=== PATIENT | male | born 1975 | race Two or more races ===

== ENCOUNTER 2017-02-13 09:29 | Inpatient (IN) | payer OTHER ==
[2017-02-13 11:52] VITALS: BMI 21.6
--- NOTE | 2017-02-13 14:15 | HP ---
CIWA Score - CIWA Score Nausea/Vomitin-No Nausea/No Vomiting Muscle Tremors: 3 Anxiety: 4-Mod. Anxious/Guarded Agitation: 3 Paroxysmal Sweats: 1-Minimal Palms Moist Orientation: 0-Oriented Tacttile Disturbances: 3-Moderate Itch/Numb/Burn Auditory Disturbances: 0-None Visual Disturbances: 0-None Headache: 0-None Present CIWA-Ar Total Score: 14 Admission ROS S - HPI Chief Complaint: DETOX TX FOR ALCOHOL DEPENDENCE/ WITHDRAWAL SX Allergies/Adverse Reactions: Allergies Allergy/AdvReac Type Severity Reaction Status Date / Time No Known Allergies Allergy Verified 02/13/17 13:02 History of Present Illness: 41 Y/O H/M WITH A HX OF ALCOHOL,COCIANE AND HEROIN DEPENDENCE SEEKING DETOX TX. PT HAS PREVIOUS TX EPISODES OF DRUG TX. PT'S URINE TOXICOLOGY IS NEGATIVE FOR OPIATE. PT STATES USES HEROIN ABOUT 2X/WEEK AND LAST WEEK WAS 4 DAYS AGO. Exam Limitations: No Limitations - Ebola screening Have you traveled outside of the country in the last 21 days: No Have you had contact with anyone from an Ebola affected area: No Have you been sick,other than usual withdrawal symptoms: No - Review of Systems Constitutional: Chills, Loss of Appetite, Night Sweats, Changes in sleep, Unintentional Wgt. Loss EENT: reports: Blurred Vision, Tearing, Nose Congestion, Dental Problems ( MISSING TEETH) Respiratory: reports: Shortness of Breath (HX ASTHAM), Wheezing Cardiac: reports: Lightheadedness GI: reports: Constipated, Diarrhea, Nausea, Poor Appetite, Poor Fluid Intake : reports: Frequency Musculoskeletal: reports: Back Pain, Other (RIGHT FOOT PAIN DUE TO OLD SX.) Integumentary: reports: No Symptoms Reported Neuro: reports: Headache, Tremors, Unsteady Gait, Dizziness Endocrine: reports: No Symptoms Reported Hematology: reports: No Symptoms Reported Psychiatric: reports: Orientated x3, Anxious, Depressed Other Systems: Reviewed and Negative Patient History - Patient Medical History Hx Anemia: No Hx Asthma: Yes (MDI) Hx Chronic Obstructive Pulmonary Disease (COPD): No Hx Cancer: No Hx Cardiac Disorders: No Hx Congestive Heart Failure: No Hx Hypertension: Yes (NO MEDS) Hx Hypercholesterolemia: Yes (NORMALIZED, PER PT--NO MEDS) Hx Pacemaker: No HX Cerebrovascular Accident: No Hx Seizures: No Hx Dementia: No Hx Diabetes: Yes (ON HUMULIN 70/30 15 UNITS BID) Hx Gastrointestinal Disorders: No Hx Liver Disease: No Hx Genitourinary Disorders: No Hx Sexually Transmitted Disorders: Yes (gonorrhea at age 20) Hx Renal Disease (ESRD): No Hx Thyroid Disease: No Hx Human Immunodeficiency Virus (HIV): No (NEGATIVE HX) Hx Hepatitis C: No Hx Depression: Yes (ON REMERON) Hx Suicide Attempt: No (DENIES) Hx Bipolar Disorder: Yes Hx Schizophrenia: No - Patient Surgical History Past Surgical History: Yes Hx Neurologic Surgery: No Hx Cataract Extraction: No Hx Cardiac Surgery: No Hx Lung Surgery: No Hx Breast Surgery: No Hx Breast Biopsy: No Hx Abdominal Surgery: No Hx Appendectomy: No Hx Cholecystectomy: No Hx Genitourinary Surgery: No Hx Orthopedic Surgery: Yes (right middle/left index fingers 3 years ago) Other Surgical History: abscess, right foot in 05/25/2015 Anesthesia Reaction: No - PPD History Previous Implant?: Yes Documented Results: Positive w/o proof Results: CXR TBD PPD to be Administered?: No - Reproductive History Patient is a Female of Child Bearing Age (11 -55 yrs old): No (MALE) Patient : (N/A) - Smoking Cessation Smoking history: Current every day smoker Have you smoked in the past 12 months: Yes Aproximately how many cigarettes per day: 60 Hx Chewing Tobacco Use: No Initiated information on smoking cessation: Yes 'Breaking Loose' booklet given: 02/13/17 - Substance & Tx. History Hx Alcohol Use: Yes (BEER/VODKA) Hx Substance Use: Yes (CRACK/COCAINE/HEROIN) Substance Use Type: Alcohol, Cocaine, Heroin Hx Substance Use Treatment: Yes (LAST TX AT [facility] DETOX) - Substances Abused Crack Route: Smoking Frequency: Daily Amount used: $80 Age of first use: 31 Date of Last Use: 02/12/17 Heroin Route: Inhalation Frequency: 1-2 times per week Amount used: 1 bag Age of first use: 27 Date of Last Use: 02/10/17 Alcohol-beer/vodka Route: Oral Frequency: Daily Amount used: 2-6 pks. Age of first use: 16 Date of Last Use: 02/13/17 Family Disease History - Family Disease History Family Disease History: Diabetes: Father (etoh), Mother, Other: Father Admission Physical Exam [facility] - Vital Signs Vital Signs: Vital Signs - 24 hr 02/13/17 11:46 Temperature 97.2 F L Pulse Rate 86 Respiratory 20 Rate Blood Pressure 151/89 - Physical General Appearance: Yes: Moderate Distress, Thin, Irritable, Anxious HEENTM: Yes: EOMI, Normocephalic, YVON, Pharynx Normal, Nasal Congestion, Rhinorrhea Respiratory: Yes: Chest Non-Tender, Lungs Clear, Normal Breath Sounds, No Respiratory Distress Neck: Yes: No masses,lesions,Nodules, Supple, Trachea in good position Breast: Yes: Breast Exam Deferred Cardiology: Yes: Regular Rhythm, Regular Rate, S1, S2 Abdominal: Yes: Normal Bowel Sounds, Non Tender, Flat, Soft Genitourinary: Yes: Other (N/C) Back: Yes: Within Normal Limits Musculoskeletal: Yes: full range of Motion, Gait Steady (BUT WITH SLIGHT LIMP DUE TO HX RIGHT FOOT SX.) Extremities: Yes: Normal Range of Motion, Other (SLIGHT PAIN ON RIGHT GREAT TOE OLD SX SITE.) 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 intact, Fully Oriented, Alert Integumentary: Yes: Dry, Warm Lymphatic: Yes: Within Normal Limits - Diagnostic (1) Alcohol dependence with uncomplicated withdrawal Current Visit: Yes Status: Acute (2) Asthma Current Visit: Yes Status: Chronic Qualifiers: Asthma severity: mild Asthma complication type: uncomplicated (3) Diabetes Current Visit: Yes Status: Chronic Qualifiers: Diabetes mellitus type: type 1 Diabetes mellitus complication status: without complication Qualified Code(s): E10.9 - Type 1 diabetes mellitus without complications; E10.9 - Type 1 diabetes mellitus without complications; E10.9 - Type 1 diabetes mellitus without complications; E10.9 - Type 1 diabetes mellitus without complications (4) HTN (hypertension) Current Visit: Yes Status: Chronic Qualifiers: Hypertension type: essential hypertension Qualified Code(s): I10 - Essential (primary) hypertension; I10 - Essential (primary) hypertension; I10 - Essential (primary) hypertension (5) Cocaine dependence Current Visit: Yes Status: Acute Qualifiers: Substance use status: uncomplicated Qualified Code(s): F14.20 - Cocaine dependence, uncomplicated; F14.20 - Cocaine dependence, uncomplicated; F14.20 - Cocaine dependence, uncomplicated (6) History of gout Current Visit: Yes Status: Chronic Cleared for Admission [facility] - Detox or Rehab [facility] Level of Care: Medically Managed Detox Regimen/Protocol: Librium [facility] Breath Alcohol Content Breath Alcohol Content: 0 Urine Drug Screen - Results Drug Screen Negative: No Urine Drug Screen Results: ABUNDIO-Cocaine
[2017-02-13] MEDS ORDERED: MENTHOL/PHENOL 1 EACH UD MM PRN (14:36)
[2017-02-13] MEDS ORDERED: hydrOXYzine PAMOATE 50 MG CAPSULE (FP) PO PRN (14:36)
[2017-02-13] MEDS ORDERED: ACETAMINOPHEN 325 MG TABLET (FP) PO PRN (14:36)
[2017-02-13] MEDS ORDERED: guaiFENesin/D-METHORPHAN HB 10 ML UNIT-DOSE CUPS PO PRN (14:36)
[2017-02-13] MEDS ORDERED: P-EPHED 60MG/TRIPROLIDI 2.5MG TABLET PO PRN (14:36)
[2017-02-13] MEDS ORDERED: chlordiazePOXIDE HCL 25 MG CAPSULE PO PRN (14:36)
[2017-02-13] MEDS ORDERED: MAG HYDROX/AL HYDROX/SIMETH 30 ML UNIT-DOSE CUP PO PRN (14:36)
[2017-02-13] MEDS ORDERED: LOPERAMIDE HCL 2 MG CAPSULE PO PRN (14:36)
[2017-02-13] MEDS ORDERED: NICOTINE POLACRILEX 4 MG GUM BUC PRN (14:36)
[2017-02-13] MEDS ORDERED: MAGNESIUM CITRATE 300 ML BOTTLE PO PRN (14:36)
[2017-02-13] MEDS ORDERED: MAGNESIUM HYDROX 2400MG/30ML ORAL SUSPENSION 30 ML CUP PO PRN (14:36)
[2017-02-13] MEDS ORDERED: chlordiazePOXIDE HCL 25 MG CAPSULE PO ONE (14:45)
[2017-02-13] MEDS: NICOTINE 21 MG/24 HOURS TOPICAL PATCH TD SCH (15:15)
[2017-02-13] MEDS ORDERED: ALBUTEROL SO4 18 GM HFA INHALER IH PRN (15:56)
[2017-02-13 16:49] LABS: MCHC 34.1 g/dl (32.0-35.9); MEAN PLT VOLUME 9.6 fl (7.5-11.1); PLATELET COUNT 204 K/MM3 (134-434); RDW 12.8 % (11.9-15.9); WHITE BLOOD COUNT 7.2 K/mm3 (4.0-10.0)
[2017-02-13 17:01] LABS: ANION GAP 12 (8-16); CALCIUM 9.8 mg/dL (8.5-10.1); CO2 25 mmol/L (21-32)
[2017-02-13 17:05] LABS: ALK PHOS 139 U/L (45-117); BILIRUBIN,TOTAL 0.7 mg/dL (0.2-1.0); CREATININE 0.9 mg/dL (0.7-1.3); SGOT/AST 26 U/L (15-37); SGPT/ALT 39 U/L (12-78); TOT PROT 7.6 g/dl (6.4-8.2)
[2017-02-13 17:06] LABS: GLUCOSE,RANDOM 411 mg/dL (74-106)
[2017-02-13] MEDS: chlordiazePOXIDE HCL 25 MG CAPSULE PO SCH ×2 (18:26→22:30)
[2017-02-13] MEDS: ASPIRIN 81 MG CHEWABLE TABLETS PO SCH (18:26)
[2017-02-13 20:56] LABS: URINE APPEARANCE CLEAR; URINE BILIRUBIN NEGATIVE (NEGATIVE); URINE BLOOD NEGATIVE (NEGATIVE); URINE COLOR LTYELLOW; URINE GLUCOSE (UA) 3+ (NEGATIVE); URINE KETONE NEGATIVE (NEGATIVE); URINE LEUK ESTERASE NEGATIVE (NEGATIVE); URINE NITRITE NEGATIVE (NEGATIVE); URINE PROTEIN NEGATIVE (NEGATIVE); URINE UROBILINOGEN NEGATIVE mg/dL (0.2-1.0)
[2017-02-13] MEDS ORDERED: INSULIN (NOVOLOG MIX 70/30) 100 UNITS/ML MDV SQ ONE (21:59)
[2017-02-13] MEDS ORDERED: PATIENT'S OWN MEDICATION (NON-FORMULARY) (Insulin Nph Hum/Reg Insulin Hm [Humulin 70/30 Kw SQ SCH (22:00)
[2017-02-13] MEDS ORDERED: NAPROXEN 500 MG TABLET (FP) PO SCH (22:00)
[2017-02-13] MEDS: NAPROXEN 500 MG TABLET (FP) PO PRN (22:30)
[2017-02-13] MEDS: THIAMINE HCL 100 MG TABLET (FP) PO SCH (22:30)
[2017-02-13] MEDS: diphenhydrAMINE HCL 50 MG CAPSULE PO PRN (22:31)
[2017-02-14 01:19] LABS: HIV 1 & 2 AB NEGATIVE; HIV 1 AGp24 NEGATIVE
[2017-02-14] MEDS: chlordiazePOXIDE HCL 25 MG CAPSULE PO SCH ×4 (05:42→22:59)
[2017-02-14] MEDS ORDERED: INSULIN (NOVOLOG MIX 70/30) 100 UNITS/ML MDV SQ ONE ×2 (08:50→09:05)
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
[2017-02-14] MEDS: ASPIRIN 81 MG CHEWABLE TABLETS PO SCH (11:04)
[2017-02-14] MEDS: NAPROXEN 500 MG TABLET (FP) PO PRN ×2 (11:04→22:15)
[2017-02-14] MEDS: NICOTINE 21 MG/24 HOURS TOPICAL PATCH TD SCH (11:05)
[2017-02-14] MEDS: PRENATAL VITAMINS W/ FOLIC ACID TABLET (FP) PO SCH (11:05)
[2017-02-14] MEDS ORDERED: FLU VACCINE QUAD 60 MCG/0.5 ML (MDV 17-18) IM ONE (12:00)
[2017-02-14] MEDS ORDERED: INSULIN (NOVOLOG) ASPART 100 UNITS/ML 10ML VIAL ONE (12:26)
[2017-02-14] MEDS: INSULIN SLIDING SCALE (NOVOLOG) 1 VIAL SQ SCH ×3 (12:28→22:15)
--- NOTE | 2017-02-14 12:34 | PN ---
S CIWA - CIWA Score Nausea/Vomitin Muscle Tremors: 3 Anxiety: 3 Agitation: 2 Paroxysmal Sweats: 1-Minimal Palms Moist Orientation: 0-Oriented Tacttile Disturbances: 1-Very Mild Itch/Numbness Auditory Disturbances: 1-Very Mild Visual Disturbances: 1-Very Mild Sensitivity Headache: 2-Mild CIWA-Ar Total Score: 17 BHS Progress Note (SOAP) Subjective: ALERT,IRRITABLE,ANXIOUS,INTERRUPTED SLEEP,TREMOR Objective: 02/14/17 12:32 Vital Signs Temperature 96.3 F L 02/14/17 10:29 Pulse Rate 81 02/14/17 10:29 Respiratory Rate 18 02/14/17 10:29 Blood Pressure 144/90 02/14/17 10:29 O2 Sat by Pulse Oximetry (%) Laboratory Last Values WBC 7.2 K/mm3 (4.0-10.0) 02/13/17 14:30 RBC 4.78 M/mm3 (4.00-5.60) D 02/13/17 14:30 Hgb 15.3 GM/dL (11.7-16.9) D 02/13/17 14:30 Hct 44.9 % (35.4-49) D 02/13/17 14:30 MCV 94.0 fl (80-96) 02/13/17 14:30 MCH 32.0 pg (25.7-33.7) 02/13/17 14:30 MCHC 34.1 g/dl (32.0-35.9) 02/13/17 14:30 RDW 12.8 % (11.9-15.9) D 02/13/17 14:30 Plt Count 204 K/MM3 (134-434) 02/13/17 14:30 MPV 9.6 fl (7.5-11.1) 02/13/17 14:30 Sodium 134 mmol/L (136-145) L 02/13/17 14:30 Potassium 4.4 mmol/L (3.5-5.1) 02/13/17 14:30 Chloride 97 mmol/L (98-107) L 02/13/17 14:30 Carbon Dioxide 25 mmol/L (21-32) 02/13/17 14:30 Anion Gap 12 (8-16) 02/13/17 14:30 BUN 17 mg/dL (7-18) D 02/13/17 14:30 Creatinine 0.9 mg/dL (0.7-1.3) 02/13/17 14:30 Creat Clearance w eGFR > 60 (>60) 02/13/17 14:30 POC Glucometer 380 UNITS (()) 02/14/17 11:47 Random Glucose 411 mg/dL (74-106) H* D 02/13/17 14:30 Calcium 9.8 mg/dL (8.5-10.1) 02/13/17 14:30 Total Bilirubin 0.7 mg/dL (0.2-1.0) 02/13/17 14:30 AST 26 U/L (15-37) D 02/13/17 14:30 ALT 39 U/L (12-78) 02/13/17 14:30 Alkaline Phosphatase 139 U/L (45-117) H D 02/13/17 14:30 Total Protein 7.6 g/dl (6.4-8.2) 02/13/17 14:30 Albumin 4.0 g/dl (3.4-5.0) 02/13/17 14:30 Urine Color Ltyellow 02/13/17 18:35 Urine Appearance Clear 02/13/17 18:35 Urine pH 5.0 (5.0-8.0) 02/13/17 18:35 Ur Specific [place] <= 1.005 (1.005-1.025) 02/13/17 18:35 Urine Protein Negative (NEGATIVE) 02/13/17 18:35 Urine Glucose (UA) 3+ (NEGATIVE) H 02/13/17 18:35 Urine Ketones Negative (NEGATIVE) 02/13/17 18:35 Urine Blood Negative (NEGATIVE) 02/13/17 18:35 Urine Nitrite Negative (NEGATIVE) 02/13/17 18:35 Urine Bilirubin Negative (NEGATIVE) 02/13/17 18:35 Urine Urobilinogen Negative mg/dL (0.2-1.0) 02/13/17 18:35 RPR Titer Nonreactive (NONREACTIVE) 02/13/17 14:30 HIV 1&2 Antibody Screen Negative 02/13/17 14:30 HIV P24 Antigen Negative 02/13/17 14:30 Assessment: 02/14/17 12:32 WITHDRAWAL SYMPTOM Plan: CONTINUE DETOX,BGM MONITORING WITH INSULIN COVERAGE
--- NOTE | 2017-02-14 14:23 | EKG ---
Test Reason : Blood Pressure : / mmHG Vent. Rate : 078 BPM Atrial Rate : 078 BPM P-R Int : 142 ms QRS Dur : 092 ms QT Int : 382 ms P-R-T Axes : 063 060 057 degrees QTc Int : 435 ms NORMAL SINUS RHYTHM POSSIBLE LEFT ATRIAL ENLARGEMENT BORDERLINE ECG NO PREVIOUS ECGS AVAILABLE Confirmed by MADISON PRITCHARD, ROMELIA ([id number]) on 02/14/2017 2:23:43 PM Referred By: Confirmed By:ROMELIA WALLACE MD
[2017-02-14] MEDS: INSULIN (NOVOLOG MIX 70/30) 100 UNITS/ML MDV SQ SCH (18:04)
[2017-02-14] MEDS: BACITRACIN 0.9 GM PACKET TP SCH (22:15)
[2017-02-14] MEDS: MIRTAZAPINE 15 MG TABLET (FP) PO SCH (22:15)
[2017-02-14] MEDS: THIAMINE HCL 100 MG TABLET (FP) PO SCH (22:15)
[2017-02-14] MEDS: diphenhydrAMINE HCL 50 MG CAPSULE PO PRN (22:16)
[2017-02-15] MEDS: chlordiazePOXIDE HCL 25 MG CAPSULE PO SCH ×2 (06:26→11:17)
[2017-02-15] MEDS ORDERED: INSULIN (NOVOLOG) ASPART 100 UNITS/ML 10ML VIAL ONE ×4 (08:00→21:34)
[2017-02-15] MEDS ORDERED: INSULIN (NOVOLOG MIX 70/30) 100 UNITS/ML MDV SQ ONE (08:01)
[2017-02-15] MEDS: INSULIN (NOVOLOG MIX 70/30) 100 UNITS/ML MDV SQ SCH ×2 (08:04→17:00)
[2017-02-15] MEDS: INSULIN SLIDING SCALE (NOVOLOG) 1 VIAL SQ SCH ×4 (08:05→21:34)
--- NOTE | 2017-02-15 11:00 | PN ---
S CIWA - CIWA Score Nausea/Vomitin Muscle Tremors: 3 Anxiety: 2 Agitation: 3 Paroxysmal Sweats: 1-Minimal Palms Moist Orientation: 0-Oriented Tacttile Disturbances: 1-Very Mild Itch/Numbness Auditory Disturbances: 1-Very Mild Visual Disturbances: 0-None Headache: 2-Mild CIWA-Ar Total Score: 16 BHS Progress Note (SOAP) Subjective: alert,irritable,anxious,interrupted sleep,tremor Objective: 02/15/17 10:58 Vital Signs Temperature 97.9 F 02/15/17 10:00 Pulse Rate 87 02/15/17 10:00 Respiratory Rate 18 02/15/17 10:00 Blood Pressure 102/74 02/15/17 10:00 O2 Sat by Pulse Oximetry (%) Assessment: 02/15/17 10:59 withdrawal symptom Plan: continue detox,bgm monitoring with insulin coverage
[2017-02-15] MEDS: BACITRACIN 0.9 GM PACKET TP SCH ×2 (11:17→23:12)
[2017-02-15] MEDS: PRENATAL VITAMINS W/ FOLIC ACID TABLET (FP) PO SCH (11:17)
[2017-02-15] MEDS: ASPIRIN 81 MG CHEWABLE TABLETS PO SCH (11:17)
[2017-02-15] MEDS: NAPROXEN 500 MG TABLET (FP) PO PRN ×2 (11:17→22:28)
[2017-02-15] MEDS: NICOTINE 21 MG/24 HOURS TOPICAL PATCH TD SCH (11:18)
[2017-02-15] MEDS: chlordiazePOXIDE 5 MG CAPSULE PO SCH ×2 (17:10→22:25)
[2017-02-15] MEDS: MIRTAZAPINE 15 MG TABLET (FP) PO SCH (22:25)
[2017-02-15] MEDS: THIAMINE HCL 100 MG TABLET (FP) PO SCH (22:25)
[2017-02-16] MEDS: chlordiazePOXIDE 5 MG CAPSULE PO SCH (05:55)
[2017-02-16] MEDS ORDERED: INSULIN (NOVOLOG) ASPART 100 UNITS/ML 10ML VIAL ONE (07:57)
[2017-02-16] MEDS: INSULIN SLIDING SCALE (NOVOLOG) 1 VIAL SQ SCH (07:59)
[2017-02-16] MEDS: INSULIN (NOVOLOG MIX 70/30) 100 UNITS/ML MDV SQ SCH (07:59)
[2017-02-16 10:44] VITALS: BP 140/86; PULSE 74; TEMP 97.2
[2017-02-16] MEDS ORDERED: chlordiazePOXIDE HCL 10 MG CAPSULE PO SCH (17:00)
--- NOTE | 2017-02-16 20:14 | DS ---
[facility] Detox Discharge Summary Admission Date: 02/13/17 Discharge Date: 02/16/17 - History Present History: Alcohol Dependence, Cannabis Dependence, Cocaine Dependence Pertinent Past History: Type II DM HTN Asthma - Physical Exam Results Vital Signs: Vital Signs Temperature 97.2 F L 02/16/17 10:00 Pulse Rate 74 02/16/17 10:00 Respiratory Rate 18 02/16/17 10:00 Blood Pressure 140/86 02/16/17 10:00 O2 Sat by Pulse Oximetry (%) Pertinent Admission Physical Exam Findings: Withdrawal sx. Laboratory Last Values WBC 7.2 K/mm3 (4.0-10.0) 02/13/17 14:30 RBC 4.78 M/mm3 (4.00-5.60) D 02/13/17 14:30 Hgb 15.3 GM/dL (11.7-16.9) D 02/13/17 14:30 Hct 44.9 % (35.4-49) D 02/13/17 14:30 MCV 94.0 fl (80-96) 02/13/17 14:30 MCH 32.0 pg (25.7-33.7) 02/13/17 14:30 MCHC 34.1 g/dl (32.0-35.9) 02/13/17 14:30 RDW 12.8 % (11.9-15.9) D 02/13/17 14:30 Plt Count 204 K/MM3 (134-434) 02/13/17 14:30 MPV 9.6 fl (7.5-11.1) 02/13/17 14:30 Sodium 134 mmol/L (136-145) L 02/13/17 14:30 Potassium 4.4 mmol/L (3.5-5.1) 02/13/17 14:30 Chloride 97 mmol/L (98-107) L 02/13/17 14:30 Carbon Dioxide 25 mmol/L (21-32) 02/13/17 14:30 Anion Gap 12 (8-16) 02/13/17 14:30 BUN 17 mg/dL (7-18) D 02/13/17 14:30 Creatinine 0.9 mg/dL (0.7-1.3) 02/13/17 14:30 Creat Clearance w eGFR > 60 (>60) 02/13/17 14:30 POC Glucometer 371 UNITS (()) 02/16/17 06:51 Random Glucose 411 mg/dL (74-106) H* D 02/13/17 14:30 Calcium 9.8 mg/dL (8.5-10.1) 02/13/17 14:30 Total Bilirubin 0.7 mg/dL (0.2-1.0) 02/13/17 14:30 AST 26 U/L (15-37) D 02/13/17 14:30 ALT 39 U/L (12-78) 02/13/17 14:30 Alkaline Phosphatase 139 U/L (45-117) H D 02/13/17 14:30 Total Protein 7.6 g/dl (6.4-8.2) 02/13/17 14:30 Albumin 4.0 g/dl (3.4-5.0) 02/13/17 14:30 Urine Color Ltyellow 02/13/17 18:35 Urine Appearance Clear 02/13/17 18:35 Urine pH 5.0 (5.0-8.0) 02/13/17 18:35 Ur Specific [place] <= 1.005 (1.005-1.025) 02/13/17 18:35 Urine Protein Negative (NEGATIVE) 02/13/17 18:35 Urine Glucose (UA) 3+ (NEGATIVE) H 02/13/17 18:35 Urine Ketones Negative (NEGATIVE) 02/13/17 18:35 Urine Blood Negative (NEGATIVE) 02/13/17 18:35 Urine Nitrite Negative (NEGATIVE) 02/13/17 18:35 Urine Bilirubin Negative (NEGATIVE) 02/13/17 18:35 Urine Urobilinogen Negative mg/dL (0.2-1.0) 02/13/17 18:35 RPR Titer Nonreactive (NONREACTIVE) 02/13/17 14:30 HIV 1&2 Antibody Screen Negative 02/13/17 14:30 HIV P24 Antigen Negative 02/13/17 14:30 labs noted - Treatment Patient has Accepted a Rehab Referral to: Referred to [facility] for rehab - Medication Discharge Medications: Ambulatory Orders Aspirin [ASA -] 81 mg PO DAILY 04/19/15 Mirtazapine [Remeron -] 15 mg PO HS #30 tablet 07/12/15 Naproxen [Naprosyn -] 500 mg PO BID 07/12/15 Albuterol Sulfate Inhaler - [Ventolin HFA Inhaler -] 2 inh PO Q4H PRN #1 canister 07/15/15 Folic Acid - 1 mg PO DAILY 02/13/17 Insulin NPH Hum/Reg Insulin Hm [Humulin 70/30 Kwikpen] 15 units SQ BID 02/13/17 Multivitamins [Multivit ([facility] Formulary)] 1 tab PO DAILY 02/13/17 Thiamine HCl [Vitamin B-1] 50 mg PO DAILY 02/13/17 Mirtazapine [Remeron -] 15 mg PO HS #30 tablet 02/14/17 - Diagnosis (1) Alcohol dependence with uncomplicated withdrawal Status: Acute (2) Nicotine dependence Status: Acute Qualifiers: Nicotine product type: cigarettes Substance use status: uncomplicated Qualified Code(s): F17.210 - Nicotine dependence, cigarettes, uncomplicated; F17.210 - Nicotine dependence, cigarettes, uncomplicated (3) HTN (hypertension) Status: Chronic Qualifiers: Hypertension type: essential hypertension Qualified Code(s): I10 - Essential (primary) hypertension; I10 - Essential (primary) hypertension; I10 - Essential (primary) hypertension (4) Substance induced mood disorder Status: Chronic (5) Type II diabetes mellitus Status: Acute Qualifiers: Diabetes mellitus complication status: without complication Diabetes mellitus fci insulin use: with intermediate card tender use Qualified Code(s): E11.9 - Type 2 diabetes mellitus without complications; E11.9 - Type 2 diabetes mellitus without complications; E11.9 - Type 2 diabetes mellitus without complications; E11.9 - Type 2 diabetes mellitus without complications; Z79.4 - long term care administrator (current) use of insulin; Z79.4 - penitentiary (current) use of insulin; Z79.4 - penitentiary (current) use of insulin; Z79.4 - penitentiary (current) use of insulin - AMA Did Patient Leave Against Medical Advice: Yes
== END 2017-02-16 10:15 | disposition left against medical advice (07) | DRG 770 ==
LOC: YASAS 09:29 → Y6N 13:58
PROVIDERS: ADMIT Internal Medicine; ATTEND Internal Medicine
PROC: HZ2ZZZZ Detoxification Services for Substance Abuse Treatment (ICD-10-PCS; principal; 2017-02-13)
DX: F10.230 Alcohol dependence with withdrawal, uncomplicated (principal); F14.20 Cocaine dependence, uncomplicated; F12.20 Cannabis dependence, uncomplicated; F17.210 Nicotine dependence, cigarettes, uncomplicated; F19.24 Other psychoactive substance dependence with psychoactive substance-induced mood disorder; J45.909 Unspecified asthma, uncomplicated; E10.9 Type 1 diabetes mellitus without complications; I10 Essential (primary) hypertension; E78.5 Hyperlipidemia, unspecified; M10.9 Gout, unspecified; Z79.4 Long term (current) use of insulin; Z87.438 Personal history of other diseases of male genital organs; Z79.82 Long term (current) use of aspirin
CPT/HCPCS: 36415; 71020-TC; 80053; 81003; 85027; 86593; 87389; 90688; 93005; 93010; G0008

== ENCOUNTER 2017-07-30 10:03 | Inpatient (IN) | payer OTHER ==
[2017-07-30 10:27] VITALS: BMI 21.6
--- NOTE | 2017-07-30 12:27 | HP ---
CIWA Score - CIWA Score Nausea/Vomitin-Mild Nausea/No Vomiting Muscle Tremors: 4-Moderate,w/Arms Extend Anxiety: 4-Mod. Anxious/Guarded Agitation: 4-Moderately Restless Paroxysmal Sweats: 1-Minimal Palms Moist Orientation: 1-Uncertain about Date Tacttile Disturbances: 2-Mild Itch/Numbness/Burn Auditory Disturbances: 0-None Visual Disturbances: 0-None Headache: 0-None Present CIWA-Ar Total Score: 17 Admission ROS S - HPI Chief Complaint: withdrawal sx Allergies/Adverse Reactions: Allergies Allergy/AdvReac Type Severity Reaction Status Date / Time No Known Allergies Allergy Verified 07/30/17 12:01 History of Present Illness: 42 years old male with long history of alcohol nicotine dependence has diabetes ii left tooth extraction 07/29/17 positive ppd weight loss asthma and depression is admitted to detox Exam Limitations: No Limitations - Ebola screening Have you traveled outside of the country in the last 21 days: No Have you had contact with anyone from an Ebola affected area: No Have you been sick,other than usual withdrawal symptoms: No Do you have a fever: No - Review of Systems Constitutional: Loss of Appetite, Changes in sleep, Unintentional Wgt. Loss, Unexplained wgt Loss EENT: reports: No Symptoms Reported Respiratory: reports: SOB with Exertion, Productive cough (greenish) Cardiac: reports: No Symptoms Reported GI: reports: Nausea, Poor Appetite, Poor Fluid Intake, Abdominal cramping : reports: No Symptoms Reported Musculoskeletal: reports: No Symptoms Reported Integumentary: reports: No Symptoms Reported Neuro: reports: Tremors Endocrine: reports: No Symptoms Reported Hematology: reports: No Symptoms Reported Psychiatric: reports: Judgement Intact, Anxious, Depressed Other Systems: Reviewed and Negative Patient History - Patient Medical History Hx Anemia: No Hx Asthma: Yes (MDI) Hx Chronic Obstructive Pulmonary Disease (COPD): No Hx Cancer: No Hx Cardiac Disorders: No Hx Congestive Heart Failure: No Hx Hypertension: Yes (NO MEDS) Hx Hypercholesterolemia: Yes (NORMALIZED, PER PT--NO MEDS) Hx Pacemaker: No HX Cerebrovascular Accident: No Hx Seizures: No Hx Dementia: No Hx Diabetes: Yes (ON HUMULIN 70/30 15 UNITS BID) Hx Gastrointestinal Disorders: No Hx Liver Disease: No Hx Genitourinary Disorders: No Hx Sexually Transmitted Disorders: Yes (gonorrhea at age 20) Hx Renal Disease (ESRD): No Hx Thyroid Disease: No Hx Human Immunodeficiency Virus (HIV): No (NEGATIVE HX) Hx Hepatitis C: No Hx Depression: Yes (ON REMERON) Hx Suicide Attempt: No (DENIES) Hx Bipolar Disorder: Yes Hx Schizophrenia: No - Patient Surgical History Past Surgical History: Yes Hx Neurologic Surgery: No Hx Cataract Extraction: No Hx Cardiac Surgery: No Hx Lung Surgery: No Hx Breast Surgery: No Hx Breast Biopsy: No Hx Abdominal Surgery: No Hx Appendectomy: No Hx Cholecystectomy: No Hx Genitourinary Surgery: No Hx Orthopedic Surgery: Yes (right middle/left index fingers 3 years ago) Other Surgical History: abscess, right foot in 05/25/2015 Anesthesia Reaction: No - PPD History Previous Implant?: Yes Documented Results: Positive w/proof Implanted On Prior [facility] Admission?: No Results: CXR TBD PPD to be Administered?: No - Smoking Cessation Smoking history: Current every day smoker Have you smoked in the past 12 months: Yes Aproximately how many cigarettes per day: 30 Cigars Per Day: 0 Hx Chewing Tobacco Use: No Initiated information on smoking cessation: Yes 'Breaking Loose' booklet given: 07/30/17 - Substance & Tx. History Hx Alcohol Use: Yes Hx Substance Use: Yes Substance Use Type: Alcohol, Cocaine Hx Substance Use Treatment: Yes (02/2017 [facility] - Substances Abused Crack Route: Smoking Frequency: Daily Amount used: $200 Age of first use: 26 Date of Last Use: 07/30/17 Alcohol-beer Route: Oral Frequency: Daily Amount used: 2-6 pks. Age of first use: 13 Date of Last Use: 07/30/17 Family Disease History - Family Disease History Family Disease History: Diabetes: Father (etoh), Mother ( kidney), Other : Father, Mother Other Family History: only child Admission Physical Exam [facility] - Vital Signs Vital Signs: Vital Signs - 24 hr 07/30/17 10:24 Temperature 96.7 F L Pulse Rate 94 H Respiratory 20 Rate Blood Pressure 146/79 - Physical General Appearance: Yes: Appropriately Dressed, Moderate Distress, Thin, Tremorous, Irritable, Sweating, Anxious HEENTM: Yes: Hearing grossly Normal, Normal ENT Inspection, Normocephalic, Normal Voice Respiratory: Yes: Chest Non-Tender, No Respiratory Distress, No Accessory Muscle Use, Wheezing, Hyperresonant Neck: Yes: Supple, Trachea in good position Breast: Yes: Breasts Symetrical Cardiology: Yes: Regular Rhythm, S1, S2, Tachycardia Abdominal: Yes: Non Tender, Soft, Increased Bowel Sounds Genitourinary: Yes: Within Normal Limits Back: Yes: Normal Inspection Musculoskeletal: Yes: full range of Motion, Gait Steady, Back pain, Muscle Pain , Muscle weakness (right leg) Extremities: Yes: Normal Inspection, Normal Range of Motion, Non-Tender, Tremors Neurological: Yes: Alert, Motor Strength 5/5, Normal Response, Depressed Affect Integumentary: Yes: Warm Lymphatic: Yes: Within Normal Limits - Diagnostic (1) Alcohol dependence with uncomplicated withdrawal Current Visit: Yes Status: Acute (2) Nicotine dependence Current Visit: Yes Status: Acute Qualifiers: Nicotine product type: cigarettes Substance use status: in withdrawal Qualified Code(s): F17.213 - Nicotine dependence, cigarettes, with withdrawal (3) Type II diabetes mellitus Current Visit: Yes Status: Chronic Qualifiers: Diabetes mellitus rodent 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 insulin use: with rodent 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 use Diabetes mellitus complication status: without complication Qualified Code(s): E11.9 - Type 2 diabetes mellitus without complications (4) Asthma Current Visit: Yes Status: Chronic Qualifiers: Asthma severity: mild Asthma persistence: intermittent Asthma complication type: uncomplicated Qualified Code(s): J45.20 - Mild intermittent asthma, uncomplicated (5) Gout flare Current Visit: No Status: Chronic Qualifiers: Gout site: foot Laterality: right (6) Use of cane as ambulatory aid Current Visit: Yes Status: Chronic Cleared for Admission [facility] - Detox or Rehab [facility] Level of Care: Medically Managed Detox Regimen/Protocol: Librium [facility] Breath Alcohol Content Breath Alcohol Content: 0 Urine Drug Screen - Results Drug Screen Negative: No Urine Drug Screen Results: ABUNDIO-Cocaine
[2017-07-30] MEDS ORDERED: MENTHOL/PHENOL 1 EACH UD MM PRN (12:32)
[2017-07-30] MEDS ORDERED: NICOTINE POLACRILEX 4 MG GUM BUC PRN (12:32)
[2017-07-30] MEDS ORDERED: MAGNESIUM HYDROX 2400MG/30ML ORAL SUSPENSION 30 ML CUP PO PRN (12:32)
[2017-07-30] MEDS ORDERED: MAG HYDROX/AL HYDROX/SIMETH 30 ML UNIT-DOSE CUP PO PRN (12:32)
[2017-07-30] MEDS ORDERED: chlordiazePOXIDE HCL 25 MG CAPSULE PO PRN (12:32)
[2017-07-30] MEDS ORDERED: MAGNESIUM CITRATE 300 ML BOTTLE PO PRN (12:32)
[2017-07-30] MEDS ORDERED: P-EPHED 60MG/TRIPROLIDI 2.5MG TABLET PO PRN (12:32)
[2017-07-30] MEDS ORDERED: ALBUTEROL SO4 0.083% IH SOL 2.5 MG/3 ML VIAL.NEB. NEB PRN (12:36)
[2017-07-30] MEDS: ALBUTEROL SO4 18 GM HFA INHALER IH PRN (14:54)
[2017-07-30 15:55] LABS: URINE APPEARANCE CLEAR; URINE BILIRUBIN NEGATIVE (NEGATIVE); URINE BLOOD NEGATIVE (NEGATIVE); URINE COLOR LTYELLOW; URINE GLUCOSE (UA) 3+ (NEGATIVE); URINE KETONE NEGATIVE (NEGATIVE); URINE LEUK ESTERASE NEGATIVE (NEGATIVE); URINE NITRITE NEGATIVE (NEGATIVE); URINE PROTEIN NEGATIVE (NEGATIVE)
[2017-07-30] MEDS ORDERED: INSULIN (NOVOLOG) ASPART 100 UNITS/ML 10ML VIAL ONE ×3 (16:29→21:26)
[2017-07-30] MEDS ORDERED: INSULIN SLIDING SCALE (NOVOLOG) 1 VIAL SQ SCH (16:30)
[2017-07-30] MEDS ORDERED: INSULIN (NOVOLOG MIX 70/30) 100 UNITS/ML MDV SQ ONE (16:46)
[2017-07-30] MEDS: INSULIN SLIDING SCALE (NOVOLOG) 1 VIAL SQ SCH ×2 (16:48→22:29)
[2017-07-30] MEDS: INSULIN (NOVOLOG MIX 70/30) 100 UNITS/ML MDV SQ SCH (16:48)
--- NOTE | 2017-07-30 17:22 | EKG ---
Test Reason : Blood Pressure : / mmHG Vent. Rate : 078 BPM Atrial Rate : 078 BPM P-R Int : 134 ms QRS Dur : 092 ms QT Int : 382 ms P-R-T Axes : 068 063 058 degrees QTc Int : 435 ms NORMAL SINUS RHYTHM NORMAL ECG WHEN COMPARED WITH ECG OF 13-FEB-2017 14:35, NO SIGNIFICANT CHANGE WAS FOUND Confirmed by Zbigniew Sevilla ([id number]) on 07/30/2017 5:22:15 PM Referred By: Confirmed By:Zbigniew Sevilla
[2017-07-30] MEDS ORDERED: PATIENT'S OWN MEDICATION (NON-FORMULARY) (Clindamycin [Cleocin -] 300 MG) PO SCH (18:00)
[2017-07-30] MEDS: NAPROXEN 500 MG TABLET (FP) PO PRN (19:14)
[2017-07-30] MEDS: PATIENT'S OWN MEDICATION (NON-FORMULARY) (Clindamycin [Cleocin -] 300 MG) PO SCH (19:14)
[2017-07-30] MEDS ORDERED: PATIENT'S OWN MEDICATION (NON-FORMULARY) (Insulin Nph Hum/Reg Insulin Hm [Humulin 70/30 Kw SQ SCH (22:00)
[2017-07-30] MEDS: MELATONIN 5 MG TABLETS PO SCH (22:27)
[2017-07-30] MEDS: THIAMINE HCL 100 MG TABLET (FP) PO SCH (22:27)
[2017-07-30] MEDS: chlordiazePOXIDE HCL 25 MG CAPSULE PO SCH (22:27)
[2017-07-31] MEDS: PATIENT'S OWN MEDICATION (NON-FORMULARY) (Clindamycin [Cleocin -] 300 MG) PO SCH ×4 (00:05→17:01)
[2017-07-31] MEDS: ACETAMINOPHEN 325 MG TABLET (FP) PO PRN (05:42)
[2017-07-31] MEDS: chlordiazePOXIDE HCL 25 MG CAPSULE PO SCH ×4 (06:32→22:06)
[2017-07-31] MEDS ORDERED: INSULIN (NOVOLOG) ASPART 100 UNITS/ML 10ML VIAL ONE ×4 (07:09→21:55)
[2017-07-31] MEDS: LIDOCAINE VISCOUS 2% ORAL/TOP 20 ML UNIT-DOSE CUP MM PRN ×2 (07:11→11:36)
[2017-07-31] MEDS: INSULIN (NOVOLOG MIX 70/30) 100 UNITS/ML MDV SQ SCH ×2 (07:26→17:04)
[2017-07-31] MEDS: INSULIN SLIDING SCALE (NOVOLOG) 1 VIAL SQ SCH ×4 (07:26→22:06)
--- NOTE | 2017-07-31 08:51 | CONSULT ---
[facility] Psychiatric Consult - Data Date of interview: 07/31/17 Admission source: [facility] Substance Abuse History: Following information confirmed with Mr. Valencia: Smoking Cessation. Smoking history: Current every day smoker. Have you smoked in the past 12 months: Yes. Aproximately how many cigarettes per day: 30. Cigars Per Day: 0. Hx Chewing Tobacco Use: No. Initiated information on smoking cessation: Yes. 'Breaking Loose' booklet given: 07/30/17. - Substance & Tx. History. Hx Alcohol Use: Yes. Hx Substance Use: Yes. Substance Use Type : Alcohol, Cocaine. Hx Substance Use Treatment: Yes (02/2017 [facility]). - Substances Abused. Crack. Route: Smoking. Frequency: Daily. Amount used: $200. Age of first use: 26. Date of Last Use: 07/30/17. Alcohol-beer. Route: Oral. Frequency: Daily. Amount used: 2-6 pks. Age of first use: 13. Date of Last Use: 07/30/17 Medical History: Asthma, hypertension, Diabetes Psychiatric History: Patient's first encounter with a psychiatrist was at 40 years of age after admitting self to [facility] for depression. Most recent hospitalization was in 2017 at [facility]. Outpatient care is provided by the [facility] outpatient clinic. Pt has a diagnosis of depression and is prescribed mirtazapine 15mg qhs. Pt. denies h/o suicide attempt. Pt. denies current suicidal and homicidal ideation. Physical/Sexual Abuse/Trauma History: Denies Mental Status Exam - Mental Status Exam Alert and Oriented to: Time, Place, Person Cognitive Function: Good Patient Appearance: Well Groomed Mood: Euthymic Affect: Mood Congruent Patient Behavior: Appropriate, Cooperative Speech Pattern: Appropriate Voice Loudness: Normal Thought Process: Goal Oriented Thought Disorder: Not Present Hallucinations: Denies Suicidal Ideation: Denies Homicidal Ideation: Denies Insight/Judgement: Poor Sleep: Poorly Appetite: Fair Muscle strength/Tone: Normal Gait/Station: Normal Psychiatric Findings - Problem List ([place] 1, 2,3) (1) Alcohol dependence with uncomplicated withdrawal Current Visit: Yes Status: Acute (2) Nicotine dependence Current Visit: Yes Status: Acute Qualifiers: Nicotine product type: cigarettes Substance use status: in withdrawal Qualified Code(s): F17.213 - Nicotine dependence, cigarettes, with withdrawal (3) Alcohol dependence Current Visit: Yes Status: Chronic (4) Substance induced mood disorder Current Visit: Yes Status: Acute (5) Insomnia Current Visit: Yes Status: Acute - Initial Treatment Plan Initial Treatment Plan: Psychoeducation provided. Detoxification provided. Mirtazapine 15mg qhs ordered. Benefits and side effects discussed. Verbal consent given. Will continue to monitor.
[2017-07-31 10:15] LABS: HEMATOCRIT 39.7 % (35.4-49); HEMOGLOBIN 13.1 GM/dL (11.7-16.9); MCH 31.8 pg (25.7-33.7); MEAN CELL VOLUME 96.3 fl (80-96); MEAN PLT VOLUME 10.6 fl (7.5-11.1); PLATELET COUNT 199 K/MM3 (134-434); RBC 4.12 M/mm3 (4.00-5.60); RDW 13.3 % (11.9-15.9); WHITE BLOOD COUNT 7.2 K/mm3 (4.0-10.0)
[2017-07-31] MEDS: ASPIRIN 81 MG CHEWABLE TABLETS PO SCH (10:27)
[2017-07-31] MEDS: PRENATAL VITAMINS W/ FOLIC ACID TABLET (FP) PO SCH (10:27)
[2017-07-31] MEDS: NICOTINE 21 MG/24 HOURS TOPICAL PATCH TD SCH (10:28)
[2017-07-31] MEDS: NAPROXEN 500 MG TABLET (FP) PO PRN (10:29)
[2017-07-31 10:43] LABS: CHLORIDE 98 mmol/L (98-107); POTASSIUM 4.7 mmol/L (3.5-5.1); SODIUM 135 mmol/L (136-145)
[2017-07-31 11:01] LABS: ALBUMIN 3.7 g/dl (3.4-5.0); ALK PHOS 128 U/L (45-117); ANION GAP 11 (8-16); BILIRUBIN,TOTAL 0.5 mg/dL (0.2-1.0); BLOOD UREA NITROGEN 22 mg/dL (7-18); CALCIUM 9.2 mg/dL (8.5-10.1); CO2 26 mmol/L (21-32); SGOT/AST 20 U/L (15-37); SGPT/ALT 29 U/L (12-78); TOT PROT 7.2 g/dl (6.4-8.2)
[2017-07-31 11:03] LABS: GLUCOSE,RANDOM 487 mg/dL (74-106)
--- NOTE | 2017-07-31 13:02 | PN ---
[facility] CIWA - CIWA Score Nausea/Vomitin-No Nausea/No Vomiting Muscle Tremors: 4-Moderate,w/Arms Extend Anxiety: 4-Mod. Anxious/Guarded Agitation: 2 Paroxysmal Sweats: 3 Orientation: 0-Oriented Tacttile Disturbances: 2-Mild Itch/Numbness/Burn Auditory Disturbances: 2-Mild Harshness/Frighten Visual Disturbances: 0-None Headache: 0-None Present CIWA-Ar Total Score: 17 BHS Progress Note (SOAP) Subjective: Interrupted Sleep, Sweating, Anxious, Tremors. Objective: PATIENT A & O X 3, OBSERVED AMBULATING ON UNIT. NO ACUTE DISTRESS. 07/31/17 13:03 Vital Signs Temperature 96.1 F L 07/31/17 09:57 Pulse Rate 86 07/31/17 09:57 Respiratory Rate 18 07/31/17 09:57 Blood Pressure 136/78 07/31/17 09:57 O2 Sat by Pulse Oximetry (%) Laboratory Tests 07/30/17 07/30/17 07/30/17 12:47 13:00 13:58 WBC RBC Hgb Hct MCV MCH MCHC RDW Plt Count MPV Sodium Potassium Chloride Carbon Dioxide Anion Gap BUN Creatinine Creat Clearance w eGFR POC Glucometer 417 Random Glucose Calcium Total Bilirubin AST ALT Alkaline Phosphatase Total Protein Albumin Urine Color Ltyellow Urine Appearance Clear Urine pH 6.0 Ur Specific [place] 1.037 H Urine Protein Negative Urine Glucose (UA) 3+ H Urine Ketones Negative Urine Blood Negative Urine Nitrite Negative Urine Bilirubin Negative Urine Urobilinogen 2.0 Ur Leukocyte Esterase Negative HIV 1&2 Antibody Screen Negative HIV P24 Antigen Negative 07/30/17 07/30/17 07/31/17 16:22 21:23 05:38 WBC RBC Hgb Hct MCV MCH MCHC RDW Plt Count MPV Sodium Potassium Chloride Carbon Dioxide Anion Gap BUN Creatinine Creat Clearance w eGFR POC Glucometer 564 257 406 Random Glucose Calcium Total Bilirubin AST ALT Alkaline Phosphatase Total Protein Albumin Urine Color Urine Appearance Urine pH Ur Specific [place] Urine Protein Urine Glucose (UA) Urine Ketones Urine Blood Urine Nitrite Urine Bilirubin Urine Urobilinogen Ur Leukocyte Esterase HIV 1&2 Antibody Screen HIV P24 Antigen 07/31/17 07/31/17 07/31/17 06:00 06:00 11:39 WBC 7.2 RBC 4.12 Hgb 13.1 D Hct 39.7 MCV 96.3 H MCH 31.8 MCHC 33.0 RDW 13.3 Plt Count 199 MPV 10.6 D Sodium 135 L Potassium 4.7 Chloride 98 Carbon Dioxide 26 Anion Gap 11 BUN 22 H D Creatinine 1.0 Creat Clearance w eGFR > 60 POC Glucometer 290 Random Glucose 487 H* Calcium 9.2 Total Bilirubin 0.5 D AST 20 D ALT 29 D Alkaline Phosphatase 128 H Total Protein 7.2 Albumin 3.7 Urine Color Urine Appearance Urine pH Ur Specific [place] Urine Protein Urine Glucose (UA) Urine Ketones Urine Blood Urine Nitrite Urine Bilirubin Urine Urobilinogen Ur Leukocyte Esterase HIV 1&2 Antibody Screen HIV P24 Antigen LABS NOTED. Assessment: 07/31/17 13:03 WITHDRAWAL SYMPTOMS. Plan: CONTINUE DETOX.
[2017-07-31] MEDS: MELATONIN 5 MG TABLETS PO SCH (22:05)
[2017-07-31] MEDS: THIAMINE HCL 100 MG TABLET (FP) PO SCH (22:05)
[2017-07-31] MEDS: MIRTAZAPINE 15 MG TABLET (FP) PO SCH (22:06)
[2017-08-01] MEDS: PATIENT'S OWN MEDICATION (NON-FORMULARY) (Clindamycin [Cleocin -] 300 MG) PO SCH ×5 (00:15→23:22)
[2017-08-01] MEDS: LOPERAMIDE HCL 2 MG CAPSULE PO PRN ×2 (05:49→17:14)
[2017-08-01] MEDS: chlordiazePOXIDE HCL 25 MG CAPSULE PO SCH ×3 (05:49→16:56)
[2017-08-01] MEDS: LIDOCAINE VISCOUS 2% ORAL/TOP 20 ML UNIT-DOSE CUP MM PRN (05:50)
[2017-08-01] MEDS: ALBUTEROL SO4 18 GM HFA INHALER IH PRN (05:52)
[2017-08-01] MEDS: ACETAMINOPHEN 325 MG TABLET (FP) PO PRN (05:52)
[2017-08-01] MEDS: INSULIN SLIDING SCALE (NOVOLOG) 1 VIAL SQ SCH ×4 (07:12→21:54)
[2017-08-01] MEDS ORDERED: INSULIN (NOVOLOG) ASPART 100 UNITS/ML 10ML VIAL ONE ×4 (07:14→21:37)
[2017-08-01] MEDS: INSULIN (NOVOLOG MIX 70/30) 100 UNITS/ML MDV SQ SCH ×2 (07:20→16:58)
[2017-08-01] MEDS: PRENATAL VITAMINS W/ FOLIC ACID TABLET (FP) PO SCH (10:34)
[2017-08-01] MEDS: ASPIRIN 81 MG CHEWABLE TABLETS PO SCH (10:34)
[2017-08-01] MEDS: NICOTINE 21 MG/24 HOURS TOPICAL PATCH TD SCH (10:34)
[2017-08-01] MEDS: NAPROXEN 500 MG TABLET (FP) PO PRN (10:36)
--- NOTE | 2017-08-01 14:39 | PN ---
[facility] CIWA - CIWA Score Nausea/Vomitin-No Nausea/No Vomiting Muscle Tremors: None Anxiety: 5 Agitation: 3 Paroxysmal Sweats: 3 Orientation: 0-Oriented Tacttile Disturbances: 2-Mild Itch/Numbness/Burn Auditory Disturbances: 0-None Visual Disturbances: 2-Mild Sensitivity Headache: 0-None Present CIWA-Ar Total Score: 15 S Progress Note (SOAP) Subjective: Sweating, Diarrhea, Interrupted sleep, Diarrhea, Stomach cramping, Anxious. Objective: PATIENT A & O X 3, OBSERVED AMBULATING ON UNIT WITH ASSISTANCE OF A CANE. NO ACUTE DISTRESS. PATIENT DENIES CHEST PAIN. 08/01/17 14:35 Vital Signs Temperature 96.5 F L 08/01/17 13:55 Pulse Rate 84 08/01/17 13:55 Respiratory Rate 20 08/01/17 13:55 Blood Pressure 147/86 08/01/17 13:55 O2 Sat by Pulse Oximetry (%) Laboratory Tests 07/30/17 07/30/17 07/30/17 12:47 13:00 13:58 WBC RBC Hgb Hct MCV MCH MCHC RDW Plt Count MPV Sodium Potassium Chloride Carbon Dioxide Anion Gap BUN Creatinine Creat Clearance w eGFR POC Glucometer 417 Random Glucose Calcium Total Bilirubin AST ALT Alkaline Phosphatase Total Protein Albumin Urine Color Ltyellow Urine Appearance Clear Urine pH 6.0 Ur Specific [place] 1.037 H Urine Protein Negative Urine Glucose (UA) 3+ H Urine Ketones Negative Urine Blood Negative Urine Nitrite Negative Urine Bilirubin Negative Urine Urobilinogen 2.0 Ur Leukocyte Esterase Negative RPR Titer HIV 1&2 Antibody Screen Negative HIV P24 Antigen Negative 07/30/17 07/30/17 07/31/17 16:22 21:23 05:38 WBC RBC Hgb Hct MCV MCH MCHC RDW Plt Count MPV Sodium Potassium Chloride Carbon Dioxide Anion Gap BUN Creatinine Creat Clearance w eGFR POC Glucometer 564 257 406 Random Glucose Calcium Total Bilirubin AST ALT Alkaline Phosphatase Total Protein Albumin Urine Color Urine Appearance Urine pH Ur Specific [place] Urine Protein Urine Glucose (UA) Urine Ketones Urine Blood Urine Nitrite Urine Bilirubin Urine Urobilinogen Ur Leukocyte Esterase RPR Titer HIV 1&2 Antibody Screen HIV P24 Antigen 07/31/17 07/31/17 07/31/17 06:00 06:00 06:00 WBC 7.2 RBC 4.12 Hgb 13.1 D Hct 39.7 MCV 96.3 H MCH 31.8 MCHC 33.0 RDW 13.3 Plt Count 199 MPV 10.6 D Sodium 135 L Potassium 4.7 Chloride 98 Carbon Dioxide 26 Anion Gap 11 BUN 22 H D Creatinine 1.0 Creat Clearance w eGFR > 60 POC Glucometer Random Glucose 487 H* Calcium 9.2 Total Bilirubin 0.5 D AST 20 D ALT 29 D Alkaline Phosphatase 128 H Total Protein 7.2 Albumin 3.7 Urine Color Urine Appearance Urine pH Ur Specific [place] Urine Protein Urine Glucose (UA) Urine Ketones Urine Blood Urine Nitrite Urine Bilirubin Urine Urobilinogen Ur Leukocyte Esterase RPR Titer Nonreactive HIV 1&2 Antibody Screen HIV P24 Antigen 07/31/17 07/31/17 07/31/17 11:39 16:28 21:46 WBC RBC Hgb Hct MCV MCH MCHC RDW Plt Count MPV Sodium Potassium Chloride Carbon Dioxide Anion Gap BUN Creatinine Creat Clearance w eGFR POC Glucometer 290 335 412 Random Glucose Calcium Total Bilirubin AST ALT Alkaline Phosphatase Total Protein Albumin Urine Color Urine Appearance Urine pH Ur Specific [place] Urine Protein Urine Glucose (UA) Urine Ketones Urine Blood Urine Nitrite Urine Bilirubin Urine Urobilinogen Ur Leukocyte Esterase RPR Titer HIV 1&2 Antibody Screen HIV P24 Antigen 08/01/17 08/01/17 05:47 11:12 WBC RBC Hgb Hct MCV MCH MCHC RDW Plt Count MPV Sodium Potassium Chloride Carbon Dioxide Anion Gap BUN Creatinine Creat Clearance w eGFR POC Glucometer 390 415 Random Glucose Calcium Total Bilirubin AST ALT Alkaline Phosphatase Total Protein Albumin Urine Color Urine Appearance Urine pH Ur Specific [place] Urine Protein Urine Glucose (UA) Urine Ketones Urine Blood Urine Nitrite Urine Bilirubin Urine Urobilinogen Ur Leukocyte Esterase RPR Titer HIV 1&2 Antibody Screen HIV P24 Antigen LABS NOTED. 08/01/17 14:36 Assessment: 08/01/17 14:36 WITHDRAWAL SYMPTOMS. Plan: CONTINUE DETOX. PRN IMMODIUM FOR DIARRHEA. INCREASE DAILY PO FLUID INTAKE. CLONIDINE, 0.1 MG PO FOR ELEVATED BP AND FOR DETOX SYMPTOMS.
[2017-08-01] MEDS ORDERED: cloNIDine HCL 0.1 MG TABLET PO ONE (15:30)
[2017-08-01] MEDS: MIRTAZAPINE 15 MG TABLET (FP) PO SCH (21:53)
[2017-08-01] MEDS: THIAMINE HCL 100 MG TABLET (FP) PO SCH (21:53)
[2017-08-01] MEDS: MELATONIN 5 MG TABLETS PO SCH (21:54)
[2017-08-01] MEDS: chlordiazePOXIDE 5 MG CAPSULE PO SCH (23:21)
[2017-08-02] MEDS: chlordiazePOXIDE 5 MG CAPSULE PO SCH ×3 (06:03→16:29)
[2017-08-02] MEDS: PATIENT'S OWN MEDICATION (NON-FORMULARY) (Clindamycin [Cleocin -] 300 MG) PO SCH ×3 (06:03→20:05)
[2017-08-02] MEDS: NAPROXEN 500 MG TABLET (FP) PO PRN ×2 (06:06→22:07)
[2017-08-02] MEDS: INSULIN (NOVOLOG MIX 70/30) 100 UNITS/ML MDV SQ SCH ×2 (07:01→16:29)
[2017-08-02] MEDS: INSULIN SLIDING SCALE (NOVOLOG) 1 VIAL SQ SCH ×4 (07:02→22:03)
[2017-08-02] MEDS: guaiFENesin/D-METHORPHAN HB 10 ML UNIT-DOSE CUPS PO PRN ×2 (07:08→16:32)
[2017-08-02] MEDS ORDERED: INSULIN (NOVOLOG) ASPART 100 UNITS/ML 10ML VIAL ONE ×4 (07:29→21:24)
[2017-08-02] MEDS: NICOTINE 21 MG/24 HOURS TOPICAL PATCH TD SCH (10:39)
[2017-08-02] MEDS: PRENATAL VITAMINS W/ FOLIC ACID TABLET (FP) PO SCH (10:39)
[2017-08-02] MEDS: ASPIRIN 81 MG CHEWABLE TABLETS PO SCH (10:39)
--- NOTE | 2017-08-02 14:17 | PN ---
BHS Progress Note (SOAP) Subjective: Anxious, Fatigue, Sweating. Objective: PATIENT A & O X 3. NO ACUTE DISTRESS. 08/02/17 14:15 Vital Signs Temperature 95.9 F L 08/02/17 11:01 Pulse Rate 100 H 08/02/17 11:01 Respiratory Rate 19 08/02/17 11:01 Blood Pressure 119/79 08/02/17 11:01 O2 Sat by Pulse Oximetry (%) Laboratory Tests 07/30/17 07/30/17 07/30/17 12:47 13:00 13:58 WBC RBC Hgb Hct MCV MCH MCHC RDW Plt Count MPV Sodium Potassium Chloride Carbon Dioxide Anion Gap BUN Creatinine Creat Clearance w eGFR POC Glucometer 417 Random Glucose Calcium Total Bilirubin AST ALT Alkaline Phosphatase Total Protein Albumin Urine Color Ltyellow Urine Appearance Clear Urine pH 6.0 Ur Specific [place] 1.037 H Urine Protein Negative Urine Glucose (UA) 3+ H Urine Ketones Negative Urine Blood Negative Urine Nitrite Negative Urine Bilirubin Negative Urine Urobilinogen 2.0 Ur Leukocyte Esterase Negative RPR Titer HIV 1&2 Antibody Screen Negative HIV P24 Antigen Negative 07/30/17 07/30/17 07/31/17 16:22 21:23 05:38 WBC RBC Hgb Hct MCV MCH MCHC RDW Plt Count MPV Sodium Potassium Chloride Carbon Dioxide Anion Gap BUN Creatinine Creat Clearance w eGFR POC Glucometer 564 257 406 Random Glucose Calcium Total Bilirubin AST ALT Alkaline Phosphatase Total Protein Albumin Urine Color Urine Appearance Urine pH Ur Specific [place] Urine Protein Urine Glucose (UA) Urine Ketones Urine Blood Urine Nitrite Urine Bilirubin Urine Urobilinogen Ur Leukocyte Esterase RPR Titer HIV 1&2 Antibody Screen HIV P24 Antigen 07/31/17 07/31/17 07/31/17 06:00 06:00 06:00 WBC 7.2 RBC 4.12 Hgb 13.1 D Hct 39.7 MCV 96.3 H MCH 31.8 MCHC 33.0 RDW 13.3 Plt Count 199 MPV 10.6 D Sodium 135 L Potassium 4.7 Chloride 98 Carbon Dioxide 26 Anion Gap 11 BUN 22 H D Creatinine 1.0 Creat Clearance w eGFR > 60 POC Glucometer Random Glucose 487 H* Calcium 9.2 Total Bilirubin 0.5 D AST 20 D ALT 29 D Alkaline Phosphatase 128 H Total Protein 7.2 Albumin 3.7 Urine Color Urine Appearance Urine pH Ur Specific [place] Urine Protein Urine Glucose (UA) Urine Ketones Urine Blood Urine Nitrite Urine Bilirubin Urine Urobilinogen Ur Leukocyte Esterase RPR Titer Nonreactive HIV 1&2 Antibody Screen HIV P24 Antigen 07/31/17 07/31/17 07/31/17 11:39 16:28 21:46 WBC RBC Hgb Hct MCV MCH MCHC RDW Plt Count MPV Sodium Potassium Chloride Carbon Dioxide Anion Gap BUN Creatinine Creat Clearance w eGFR POC Glucometer 290 335 412 Random Glucose Calcium Total Bilirubin AST ALT Alkaline Phosphatase Total Protein Albumin Urine Color Urine Appearance Urine pH Ur Specific [place] Urine Protein Urine Glucose (UA) Urine Ketones Urine Blood Urine Nitrite Urine Bilirubin Urine Urobilinogen Ur Leukocyte Esterase RPR Titer HIV 1&2 Antibody Screen HIV P24 Antigen 08/01/17 08/01/17 08/01/17 05:47 11:12 16:27 WBC RBC Hgb Hct MCV MCH MCHC RDW Plt Count MPV Sodium Potassium Chloride Carbon Dioxide Anion Gap BUN Creatinine Creat Clearance w eGFR POC Glucometer 390 415 331 Random Glucose Calcium Total Bilirubin AST ALT Alkaline Phosphatase Total Protein Albumin Urine Color Urine Appearance Urine pH Ur Specific [place] Urine Protein Urine Glucose (UA) Urine Ketones Urine Blood Urine Nitrite Urine Bilirubin Urine Urobilinogen Ur Leukocyte Esterase RPR Titer HIV 1&2 Antibody Screen HIV P24 Antigen 08/01/17 08/02/17 21:31 06:05 WBC RBC Hgb Hct MCV MCH MCHC RDW Plt Count MPV Sodium Potassium Chloride Carbon Dioxide Anion Gap BUN Creatinine Creat Clearance w eGFR POC Glucometer 386 310 Random Glucose Calcium Total Bilirubin AST ALT Alkaline Phosphatase Total Protein Albumin Urine Color Urine Appearance Urine pH Ur Specific [place] Urine Protein Urine Glucose (UA) Urine Ketones Urine Blood Urine Nitrite Urine Bilirubin Urine Urobilinogen Ur Leukocyte Esterase RPR Titer HIV 1&2 Antibody Screen HIV P24 Antigen LABS NOTED. Assessment: 08/02/17 14:15 WITHDRAWAL SYMPTOMS. Plan: CONTINUE DETOX.
[2017-08-02] MEDS ORDERED: INSULIN (NOVOLOG MIX 70/30) 100 UNITS/ML MDV SQ ONE (15:30)
[2017-08-02] MEDS: ACETAMINOPHEN 325 MG TABLET (FP) PO PRN (16:32)
[2017-08-02] MEDS: MIRTAZAPINE 15 MG TABLET (FP) PO SCH (22:03)
[2017-08-02] MEDS: MELATONIN 5 MG TABLETS PO SCH (22:03)
[2017-08-02] MEDS: THIAMINE HCL 100 MG TABLET (FP) PO SCH (22:03)
[2017-08-02] MEDS: chlordiazePOXIDE HCL 10 MG CAPSULE PO SCH (22:06)
[2017-08-03] MEDS: chlordiazePOXIDE HCL 10 MG CAPSULE PO SCH (05:23)
[2017-08-03] MEDS: PATIENT'S OWN MEDICATION (NON-FORMULARY) (Clindamycin [Cleocin -] 300 MG) PO SCH (05:23)
[2017-08-03] MEDS: NAPROXEN 500 MG TABLET (FP) PO PRN (05:27)
[2017-08-03] MEDS: guaiFENesin/D-METHORPHAN HB 10 ML UNIT-DOSE CUPS PO PRN (05:27)
[2017-08-03] MEDS ORDERED: INSULIN (NOVOLOG) ASPART 100 UNITS/ML 10ML VIAL ONE (06:14)
[2017-08-03] MEDS: INSULIN (NOVOLOG MIX 70/30) 100 UNITS/ML MDV SQ SCH (06:28)
[2017-08-03] MEDS: INSULIN SLIDING SCALE (NOVOLOG) 1 VIAL SQ SCH (06:29)
[2017-08-03] MEDS: PRENATAL VITAMINS W/ FOLIC ACID TABLET (FP) PO SCH (09:11)
[2017-08-03] MEDS: ASPIRIN 81 MG CHEWABLE TABLETS PO SCH (09:12)
[2017-08-03] MEDS: NICOTINE 21 MG/24 HOURS TOPICAL PATCH TD SCH (09:12)
[2017-08-03 09:34] VITALS: BP 118/73; PULSE 73; TEMP 97.1
--- NOTE | 2017-08-03 13:00 | PN ---
S Progress Note (SOAP) Subjective: Patient denies any current Detox symptoms and reports that he feels well overall. Objective: PATIENT A & O X 3, OBSERVED AMBULATING ON UNIT WITH ASSISTANCE OF A CANE. NO ACUTE DISTRESS. 08/03/17 12:59 Vital Signs Temperature 97.1 F L 08/03/17 09:34 Pulse Rate 73 08/03/17 09:34 Respiratory Rate 16 08/03/17 09:34 Blood Pressure 118/73 08/03/17 09:34 O2 Sat by Pulse Oximetry (%) Laboratory Tests 07/30/17 07/30/17 07/30/17 12:47 13:00 13:58 WBC RBC Hgb Hct MCV MCH MCHC RDW Plt Count MPV Sodium Potassium Chloride Carbon Dioxide Anion Gap BUN Creatinine Creat Clearance w eGFR POC Glucometer 417 Random Glucose Calcium Total Bilirubin AST ALT Alkaline Phosphatase Total Protein Albumin Urine Color Ltyellow Urine Appearance Clear Urine pH 6.0 Ur Specific [place] 1.037 H Urine Protein Negative Urine Glucose (UA) 3+ H Urine Ketones Negative Urine Blood Negative Urine Nitrite Negative Urine Bilirubin Negative Urine Urobilinogen 2.0 Ur Leukocyte Esterase Negative RPR Titer HIV 1&2 Antibody Screen Negative HIV P24 Antigen Negative 07/30/17 07/30/17 07/31/17 16:22 21:23 05:38 WBC RBC Hgb Hct MCV MCH MCHC RDW Plt Count MPV Sodium Potassium Chloride Carbon Dioxide Anion Gap BUN Creatinine Creat Clearance w eGFR POC Glucometer [phone] Random Glucose Calcium Total Bilirubin AST ALT Alkaline Phosphatase Total Protein Albumin Urine Color Urine Appearance Urine pH Ur Specific [place] Urine Protein Urine Glucose (UA) Urine Ketones Urine Blood Urine Nitrite Urine Bilirubin Urine Urobilinogen Ur Leukocyte Esterase RPR Titer HIV 1&2 Antibody Screen HIV P24 Antigen 07/31/17 07/31/17 07/31/17 06:00 06:00 06:00 WBC 7.2 RBC 4.12 Hgb 13.1 D Hct 39.7 MCV 96.3 H MCH 31.8 MCHC 33.0 RDW 13.3 Plt Count 199 MPV 10.6 D Sodium 135 L Potassium 4.7 Chloride 98 Carbon Dioxide 26 Anion Gap 11 BUN 22 H D Creatinine 1.0 Creat Clearance w eGFR > 60 POC Glucometer Random Glucose 487 H* Calcium 9.2 Total Bilirubin 0.5 D AST 20 D ALT 29 D Alkaline Phosphatase 128 H Total Protein 7.2 Albumin 3.7 Urine Color Urine Appearance Urine pH Ur Specific [place] Urine Protein Urine Glucose (UA) Urine Ketones Urine Blood Urine Nitrite Urine Bilirubin Urine Urobilinogen Ur Leukocyte Esterase RPR Titer Nonreactive HIV 1&2 Antibody Screen HIV P24 Antigen 07/31/17 07/31/17 07/31/17 11:39 16:28 21:46 WBC RBC Hgb Hct MCV MCH MCHC RDW Plt Count MPV Sodium Potassium Chloride Carbon Dioxide Anion Gap BUN Creatinine Creat Clearance w eGFR POC Glucometer [phone] Random Glucose Calcium Total Bilirubin AST ALT Alkaline Phosphatase Total Protein Albumin Urine Color Urine Appearance Urine pH Ur Specific [place] Urine Protein Urine Glucose (UA) Urine Ketones Urine Blood Urine Nitrite Urine Bilirubin Urine Urobilinogen Ur Leukocyte Esterase RPR Titer HIV 1&2 Antibody Screen HIV P24 Antigen 08/01/17 08/01/17 08/01/17 05:47 11:12 16:27 WBC RBC Hgb Hct MCV MCH MCHC RDW Plt Count MPV Sodium Potassium Chloride Carbon Dioxide Anion Gap BUN Creatinine Creat Clearance w eGFR POC Glucometer [phone] Random Glucose Calcium Total Bilirubin AST ALT Alkaline Phosphatase Total Protein Albumin Urine Color Urine Appearance Urine pH Ur Specific [place] Urine Protein Urine Glucose (UA) Urine Ketones Urine Blood Urine Nitrite Urine Bilirubin Urine Urobilinogen Ur Leukocyte Esterase RPR Titer HIV 1&2 Antibody Screen HIV P24 Antigen 08/01/17 08/02/17 08/02/17 21:31 06:05 11:19 WBC RBC Hgb Hct MCV MCH MCHC RDW Plt Count MPV Sodium Potassium Chloride Carbon Dioxide Anion Gap BUN Creatinine Creat Clearance w eGFR POC Glucometer [phone] Random Glucose Calcium Total Bilirubin AST ALT Alkaline Phosphatase Total Protein Albumin Urine Color Urine Appearance Urine pH Ur Specific [place] Urine Protein Urine Glucose (UA) Urine Ketones Urine Blood Urine Nitrite Urine Bilirubin Urine Urobilinogen Ur Leukocyte Esterase RPR Titer HIV 1&2 Antibody Screen HIV P24 Antigen 08/02/17 08/03/17 16:03 05:25 WBC RBC Hgb Hct MCV MCH MCHC RDW Plt Count MPV Sodium Potassium Chloride Carbon Dioxide Anion Gap BUN Creatinine Creat Clearance w eGFR POC Glucometer 429 290 Random Glucose Calcium Total Bilirubin AST ALT Alkaline Phosphatase Total Protein Albumin Urine Color Urine Appearance Urine pH Ur Specific [place] Urine Protein Urine Glucose (UA) Urine Ketones Urine Blood Urine Nitrite Urine Bilirubin Urine Urobilinogen Ur Leukocyte Esterase RPR Titer HIV 1&2 Antibody Screen HIV P24 Antigen LABS NOTED. Assessment: 08/03/17 13:06 COMPLETION OF DETOX REGIMEN. Plan: PATIENT SCHEDULED FOR DISCHARGE FROM DETOX TODAY. NO BEDS ARE AVAILABLE IN [facility], PATIENT WILL GO HOME FOR THE TIME BEING, THEN CONTACT [facility] ADMISSIONS IN THE NEXT FEW DAYS TO TO APPLY FOR POSSIBLE REHAB ABED AT THAT TIME.
--- NOTE | 2017-08-03 13:19 | DS ---
[facility] Detox Discharge Summary Admission Date: 07/30/17 Discharge Date: 08/03/17 - History Present History: Alcohol Dependence Additional Comments: NO BEDS ARE AVAILABLE IN [facility], PATIENT WILL GO HOME FOR THE TIME BEING, THEN CONTACT [facility] ADMISSIONS IN THE NEXT FEW DAYS TO TO APPLY FOR POSSIBLE REHAB ABED AT THAT TIME. PATIENT ADVISED TO COMPLETE FULL COURSE OF ANTIBIOTIC STARTED FOR DENTAL PROPHYLAXIX PRIOR TO ADMISSION TO DETOX (AND CONTINUED DURING DETOX) AFTER DISCHARGE FROM DETOX. PATIENT WAS DISCHARGED FROM DETOX UNIT IN STABLE MEDICAL CONDITION. Pertinent Past History: Asthma, Type II DM, Depression, Gout, Use of Cane as Ambulatory Aid, Insomnia. - Physical Exam Results Vital Signs: Vital Signs Temperature 97.1 F L 08/03/17 09:34 Pulse Rate 73 08/03/17 09:34 Respiratory Rate 16 08/03/17 09:34 Blood Pressure 118/73 08/03/17 09:34 O2 Sat by Pulse Oximetry (%) Pertinent Admission Physical Exam Findings: WITHDRAWAL SYMPTOMS. Laboratory Tests 07/30/17 07/30/17 07/30/17 12:47 13:00 13:58 WBC RBC Hgb Hct MCV MCH MCHC RDW Plt Count MPV Sodium Potassium Chloride Carbon Dioxide Anion Gap BUN Creatinine Creat Clearance w eGFR POC Glucometer 417 Random Glucose Calcium Total Bilirubin AST ALT Alkaline Phosphatase Total Protein Albumin Urine Color Ltyellow Urine Appearance Clear Urine pH 6.0 Ur Specific [place] 1.037 H Urine Protein Negative Urine Glucose (UA) 3+ H Urine Ketones Negative Urine Blood Negative Urine Nitrite Negative Urine Bilirubin Negative Urine Urobilinogen 2.0 Ur Leukocyte Esterase Negative RPR Titer HIV 1&2 Antibody Screen Negative HIV P24 Antigen Negative 07/30/17 07/30/17 07/31/17 16:22 21:23 05:38 WBC RBC Hgb Hct MCV MCH MCHC RDW Plt Count MPV Sodium Potassium Chloride Carbon Dioxide Anion Gap BUN Creatinine Creat Clearance w eGFR POC Glucometer 564 257 406 Random Glucose Calcium Total Bilirubin AST ALT Alkaline Phosphatase Total Protein Albumin Urine Color Urine Appearance Urine pH Ur Specific [place] Urine Protein Urine Glucose (UA) Urine Ketones Urine Blood Urine Nitrite Urine Bilirubin Urine Urobilinogen Ur Leukocyte Esterase RPR Titer HIV 1&2 Antibody Screen HIV P24 Antigen 07/31/17 07/31/17 07/31/17 06:00 06:00 06:00 WBC 7.2 RBC 4.12 Hgb 13.1 D Hct 39.7 MCV 96.3 H MCH 31.8 MCHC 33.0 RDW 13.3 Plt Count 199 MPV 10.6 D Sodium 135 L Potassium 4.7 Chloride 98 Carbon Dioxide 26 Anion Gap 11 BUN 22 H D Creatinine 1.0 Creat Clearance w eGFR > 60 POC Glucometer Random Glucose 487 H* Calcium 9.2 Total Bilirubin 0.5 D AST 20 D ALT 29 D Alkaline Phosphatase 128 H Total Protein 7.2 Albumin 3.7 Urine Color Urine Appearance Urine pH Ur Specific [place] Urine Protein Urine Glucose (UA) Urine Ketones Urine Blood Urine Nitrite Urine Bilirubin Urine Urobilinogen Ur Leukocyte Esterase RPR Titer Nonreactive HIV 1&2 Antibody Screen HIV P24 Antigen 07/31/17 07/31/17 07/31/17 11:39 16:28 21:46 WBC RBC Hgb Hct MCV MCH MCHC RDW Plt Count MPV Sodium Potassium Chloride Carbon Dioxide Anion Gap BUN Creatinine Creat Clearance w eGFR POC Glucometer 290 335 412 Random Glucose Calcium Total Bilirubin AST ALT Alkaline Phosphatase Total Protein Albumin Urine Color Urine Appearance Urine pH Ur Specific [place] Urine Protein Urine Glucose (UA) Urine Ketones Urine Blood Urine Nitrite Urine Bilirubin Urine Urobilinogen Ur Leukocyte Esterase RPR Titer HIV 1&2 Antibody Screen HIV P24 Antigen 08/01/17 08/01/17 08/01/17 05:47 11:12 16:27 WBC RBC Hgb Hct MCV MCH MCHC RDW Plt Count MPV Sodium Potassium Chloride Carbon Dioxide Anion Gap BUN Creatinine Creat Clearance w eGFR POC Glucometer 390 415 331 Random Glucose Calcium Total Bilirubin AST ALT Alkaline Phosphatase Total Protein Albumin Urine Color Urine Appearance Urine pH Ur Specific [place] Urine Protein Urine Glucose (UA) Urine Ketones Urine Blood Urine Nitrite Urine Bilirubin Urine Urobilinogen Ur Leukocyte Esterase RPR Titer HIV 1&2 Antibody Screen HIV P24 Antigen 08/01/17 08/02/17 08/02/17 21:31 06:05 11:19 WBC RBC Hgb Hct MCV MCH MCHC RDW Plt Count MPV Sodium Potassium Chloride Carbon Dioxide Anion Gap BUN Creatinine Creat Clearance w eGFR POC Glucometer 386 310 517 Random Glucose Calcium Total Bilirubin AST ALT Alkaline Phosphatase Total Protein Albumin Urine Color Urine Appearance Urine pH Ur Specific [place] Urine Protein Urine Glucose (UA) Urine Ketones Urine Blood Urine Nitrite Urine Bilirubin Urine Urobilinogen Ur Leukocyte Esterase RPR Titer HIV 1&2 Antibody Screen HIV P24 Antigen 08/02/17 08/03/17 16:03 05:25 WBC RBC Hgb Hct MCV MCH MCHC RDW Plt Count MPV Sodium Potassium Chloride Carbon Dioxide Anion Gap BUN Creatinine Creat Clearance w eGFR POC Glucometer 429 290 Random Glucose Calcium Total Bilirubin AST ALT Alkaline Phosphatase Total Protein Albumin Urine Color Urine Appearance Urine pH Ur Specific [place] Urine Protein Urine Glucose (UA) Urine Ketones Urine Blood Urine Nitrite Urine Bilirubin Urine Urobilinogen Ur Leukocyte Esterase RPR Titer HIV 1&2 Antibody Screen HIV P24 Antigen LABS NOTED. - Treatment Hospital Course: Detox Protocol Followed, Detoxed Safely, Responded well, Discharged Condition Good, Rehab Referral Accepted Patient has Accepted a Rehab Referral to: [facility] ([facility]. ). - Medication Discharge Medications: Ambulatory Orders Mirtazapine [Remeron -] 15 mg PO HS #30 tablet 07/12/15 Naproxen [Naprosyn -] 500 mg PO BID PRN 07/12/15 Clindamycin [Cleocin -] 300 mg PO Q6HPO 07/30/17 Albuterol Sulfate Inhaler - [Ventolin HFA Inhaler -] 2 inh PO Q4H PRN #1 inhaler 08/03/17 Aspirin [ASA -] 81 mg PO DAILY 30 Days #30 tab.chew 08/03/17 Insulin NPH Hum/Reg Insulin Hm [Humulin 70/30 Kwikpen] 15 units SQ BID 30 Days # 1 [email or web address] 08/03/17 Mirtazapine [Remeron -] 15 mg PO HS #30 tablet 08/03/17 - Diagnosis (1) Alcohol dependence with uncomplicated withdrawal Status: Acute (2) Nicotine dependence Status: Acute Qualifiers: Nicotine product type: cigarettes Substance use status: in withdrawal Qualified Code(s): F17.213 - Nicotine dependence, cigarettes, with withdrawal (3) Type II diabetes mellitus Status: Chronic Qualifiers: Diabetes mellitus ferry terminal [employer] insulin use: with usp use Diabetes mellitus complication status: without complication Qualified Code(s): E11.9 - Type 2 diabetes mellitus without complications; Z79.4 - MCC (current) use of insulin; Z79.4 - MCC (current) use of insulin; Z79.4 - MCC ( current) use of insulin; Z79.4 - MCC (current) use of insulin (4) Gout flare Status: Chronic Qualifiers: Gout site: foot Gout etiology: unspecified cause Laterality: right Qualified Code(s): M10.9 - Gout, unspecified (5) Asthma Status: Chronic Qualifiers: Asthma severity: mild Asthma persistence: intermittent Asthma complication type: uncomplicated Qualified Code(s): J45.20 - Mild intermittent asthma, uncomplicated (6) Use of cane as ambulatory aid Status: Chronic - AMA Did Patient Leave Against Medical Advice: No
== END 2017-08-03 11:10 | disposition home or self-care (01) | DRG 775 ==
LOC: YASAS 10:03 → Y3N 13:41
PROVIDERS: ADMIT Internal Medicine; ATTEND Internal Medicine
PROC: HZ2ZZZZ Detoxification Services for Substance Abuse Treatment (ICD-10-PCS; principal; 2017-07-30)
DX: F10.230 Alcohol dependence with withdrawal, uncomplicated (principal); F17.210 Nicotine dependence, cigarettes, uncomplicated; F32.9 Major depressive disorder, single episode, unspecified; F19.24 Other psychoactive substance dependence with psychoactive substance-induced mood disorder; G47.00 Insomnia, unspecified; E11.9 Type 2 diabetes mellitus without complications; Z79.4 Long term (current) use of insulin; M10.9 Gout, unspecified; R26.89 Other abnormalities of gait and mobility; Z99.89 Dependence on other enabling machines and devices
CPT/HCPCS: 36415; 80053; 81003; 82962; 85027; 86593; 87389; 93005; 93010